=== PATIENT | male | born 1960 ===

== ENCOUNTER 2017-02-28 06:42 | Day surgery (SDC) | payer OTHER ==
[~2017-02-28] VITALS: Ht 170.2 cm; Wt 69.8 kg
[2017-02-28 07:20] VITALS: BP 132/79
[2017-02-28 09:55] VITALS: BP 129/89
== END 2017-02-28 10:40 | disposition home or self-care (01) ==
LOC: GI 06:42 → OR 08:30 → GI 10:40
PROVIDERS: Internal Medicine Gastroenterology
PROC: 0DBG8ZZ Excision of Left Large Intestine, Via Natural or Artificial Opening Endoscopic (ICD-10-PCS; principal; 2017-02-28 08:30)
PROC: 0DBF8ZZ Excision of Right Large Intestine, Via Natural or Artificial Opening Endoscopic (ICD-10-PCS; 2017-02-28 08:30)
DX: Z12.11 Encounter for screening for malignant neoplasm of colon (principal); D12.4 Benign neoplasm of descending colon; D12.2 Benign neoplasm of ascending colon; K64.8 Other hemorrhoids; F31.9 Bipolar disorder, unspecified; Z68.24 Body mass index [BMI] 24.0-24.9, adult; Z86.010 Personal history of colon polyps
CPT/HCPCS: 45378; J1200; J1610; J2250; J2310; J3010; J3490